=== PATIENT | female | born 1980 | race Caucasian/White ===

== ENCOUNTER → 2019-10-05 | Outpatient (CLI) | payer BC | END | disposition home or self-care (01) | LOC: LABWHC1 09:24 | PROVIDERS: ATTEND Nurse Practitioner Family | DX: U07.1 COVID-19 (principal) | CPT/HCPCS: 87635 ==

== ENCOUNTER → 2020-05-04 | Outpatient (CLI) | payer BC ==
--- NOTE | 2020-05-05 09:57 | MM ---
Reason for exam: screening (asymptomatic). Last mammogram was performed 12 years and 4 months ago. History: Family history of breast cancer in aunt at age 46. Physical Findings: A clinical breast exam by your physician is recommended on an annual basis and results should be correlated with mammographic findings. MG 3D Screening Mammo W/Cad Bilateral CC and MLO view(s) were taken. No prior studies available for comparison. There are scattered fibroglandular densities. Focal asymmetry 4mm middle posterior depth upper aspect near vessel 5cm from nipple. ASSESSMENT: Incomplete: need additional imaging evaluation, BI-RAD 0 RECOMMENDATION: Special view mammogram and ultrasound of the right breast. [facility] will attempt to contact patient to return for supplemental views and ultrasound.
== END | disposition home or self-care (01) ==
LOC: RADMAMWWP 12:25
PROVIDERS: ATTEND Family Medicine
DX: Z12.31 Encounter for screening mammogram for malignant neoplasm of breast (principal)
CPT/HCPCS: 77063; 77067

== ENCOUNTER → 2020-05-11 | Outpatient (CLI) | payer BC ==
--- NOTE | 2020-05-11 09:54 | MM ---
Reason for exam: additional evaluation requested from abnormal screening. Last mammogram was performed less than 1 month ago. History: Family history of breast cancer in aunt at age 46. Physical Findings: Nurse did not find any significant physical abnormalities on exam. MG 3D Work Up W/Cad RT CC and LM view(s) were taken of the right breast. Prior study comparison: January 05, 2008, bilateral diagnostic digital mammog. There are scattered fibroglandular densities. Under compression, the area partially disperses. No visible on ML. This finding is changed when compared with previous exams. These results were verbally communicated with the patient and result sheet given to the patient on 05/11/20. ASSESSMENT: Probably benign, BI-RAD 3 RECOMMENDATION: Follow-up diagnostic mammogram of the right breast in 6 months. (3D)
== END | disposition home or self-care (01) ==
LOC: RADMAMWWP 08:09
PROVIDERS: ATTEND Family Medicine
DX: R92.8 Other abnormal and inconclusive findings on diagnostic imaging of breast (principal)
CPT/HCPCS: 77061; 77065

== ENCOUNTER → 2021-11-23 | Outpatient (CLI) | payer BC ==
--- NOTE | 2021-11-23 09:26 | NM ---
EXAMINATION TYPE: NM hepatobiliary w EF DATE OF EXAM: 11/23/2021 COMPARISON: NONE HISTORY: Cholecystitis TECHNIQUE: After the intravenous administration of 5.07 mCi Tc 99m Mebrofenin hepatobiliary scintigra phy is performed. Immediate images post injection. FINDINGS: There is satisfactory initial accumulation of tracer by the liver. The gallbladder is visualized wit hin 6 minutes. The small bowel activity is noted within 32 minutes. At one hour 8 ounces of oral en sure plus is given to mimic CCK and gallbladder ejection fraction is calculated at 68 %, in the javier l range. Therefore there is no scintigraphic evidence of cystic or common bile duct obstruction to s uggest acute cholecystitis or gallbladder dyskinesia. IMPRESSION: Exam is within normal limits.
== END | disposition home or self-care (01) ==
LOC: RADNMMAIN 06:58
PROVIDERS: ATTEND Family Medicine
DX: K81.9 Cholecystitis, unspecified (principal)
CPT/HCPCS: 78226; A9537

== ENCOUNTER 2024-06-23 05:19 | Emergency (ER) | payer BC ==
--- NOTE | 2024-06-23 06:23 | ED ---
General Adult HPI - General Source: patient Mode of arrival: ambulatory Limitations: no limitations <Elyse Fowler - Last Filed: 06/23/24 08:04> - General Source: family, RN notes reviewed, old records reviewed Mode of arrival: ambulatory Limitations: no limitations <Emil Myers - Last Filed: 06/23/24 14:03> - General Chief complaint: Urogenital Stated complaint: ABD Pain Time Seen by Provider: 06/23/24 06:00 - History of Present Illness Initial comments: Patient is a 44-year-old female no significant medical history presenting today for right flank and right upper quadrant abdominal pain for 3 weeks. Worse over the last 2 nights. She states that she has noticed bilateral flank pain right worse on the right than the left intermittently over the last 3 weeks. This always occurs at night around 3 AM. Over the last 2 nights has occurred more intensely and consistently. She has not taken any home medications for the pain states she does not like to take medications. She has some associated mild nausea but denies emesis. She denies chest pain, shortness of breath or cough. She denies constipation, melena or hematochezia. Had diarrhea a couple of weeks ago after returning from a trip to [place] but this has since resolved. Denies dysuria, hematuria or urinary frequency. No prior abdominal surgeries. Denies fevers or chills. (Elyse Fowler) - Related Data Home Medications Medication Instructions Recorded Confirmed Methylphenidate HCl [Concerta] 36 mg PO DAILY 06/23/24 06/23/24 Allergies Allergy/AdvReac Type Severity Reaction Status Date / Time Penicillins AdvReac Nausea & Verified 06/23/24 09:46 Vomiting Review of Systems ROS Other: All systems not noted in ROS Statement are negative. <Elyse Fowler - Last Filed: 06/23/24 08:04> ROS Other: All systems not noted in ROS Statement are negative. <Emil yMers - Last Filed: 06/23/24 14:03> ROS Statement: Those systems with pertinent positive or pertinent negative responses have been documented in the HPI. Past Medical History Past Medical History: No Reported History History of Any Multi-Drug Resistant Organisms: None Reported Past Surgical History: Adenoidectomy, Tonsillectomy Past Psychological History: ADD/ADHD, Anxiety, Depression Smoking Status: Never smoker Past Alcohol Use History: Occasional Past Drug Use History: None Reported <Elyse Fowler - Last Filed: 06/23/24 08:04> General Exam Limitations: no limitations <Elyse Fowler - Last Filed: 06/23/24 08:04> - General Exam Comments Initial Comments: Positive right CVA tenderness, positive West sign PE: CONSTITUTIONAL: [no apparent distress, well appearing] SKIN: [warm, dry, no jaundice, hives or petechiae] EYES:[ pupils are equally round, extraocular movements intact without nystagmus, clear conjunctiva, non-icteric sclera] HENT: [normocephalic, atraumatic, moist mucus membranes, oropharynx clear without exudates] NECK: , [Full range of motion, normal appearance] PULMONARY: [clear to auscultation without wheezes, rhonchi, or rales, normal excursion, no accessory muscle use and no stridor] CARDIOVASCULAR:[ regular rate, rhythm, normal S1 and S2. No appreciated murmurs, rubs or gallops. Strong radial pulses with intact distal perfusion. No lower extremity edema] GASTROINTESTINAL: [soft, active bowel sounds throughout, non-tender, non- distended, no palpable masses, no rebound or guarding. No hepatosplenomegaly] GENITOURINARY: MUSCULOSKELETAL: [Extremities have no gross deformity, no edema, redness, or swelling. No calf swelling ] NEUROLOGIC: [_a/o x 3, GCS 15, normal mentation and speech. Moves all extremities x 4 without motor or sensory deficit] PSYCHIATRIC:[ _normal mood and affect, thought process is clear and linear] (Elyse) Course Vital Signs 06/23/24 06/23/24 06/23/24 05:20 10:35 11:24 Temperature 97.9 F Pulse Rate 90 89 91 Respiratory 18 16 14 Rate Blood Pressure 128/81 123/80 105/74 O2 Sat by Pulse 99 99 97 Oximetry Medical Decision Making - Lab Data Result diagrams: 06/23/24 06:44 06/23/24 06:44 <Elyse Fowler - Last Filed: 06/23/24 08:04> - Lab Data Result diagrams: 06/23/24 06:44 06/23/24 06:44 - Radiology Data Radiology results: report reviewed (Ultrasound negative for acute disease CT abdomen pelvis positive mesenteric adenitis), image reviewed <GenetjeromeEmil Lizette - Last Filed: 06/23/24 14:03> - Medical Decision Making Was pt. sent in by a medical professional or institution (MARYELLEN Anderson, FABRICATING MACHINE OPERATOR, urgent care, hospital, or senior living...) When possible be specific @ -[No] Did you speak to anyone other than the patient for history (EMS, parent, family, police, friend...)? What history was obtained from this source @ -[No] Did you review nursing and triage notes (agree or disagree)? Why? @ -[I reviewed nursing and triage notes] Were old charts reviewed (outside hosp., previous admission, EMS record, old EKG, old radiological studies, urgent care reports/EKG's, senior living records)? Report findings @ -[Medical records reviewed] Differential Diagnosis (chest pain, altered mental status, abdominal pain women, abdominal pain men, vaginal bleeding, weakness, fever, dyspnea, syncope, hea dache, dizziness, GI bleed, back pain, seizure, CVA, palpatations, mental health, musculoskeletal)? @ -[not applicable] EKG interpreted by me (3pts min.). @ -[As above] X-rays interpreted by me (1pt min.). @ -[None done] CT interpreted by me (1pt min.). @ -[None done] U/S interpreted by me (1pt. min.). @ -[None done] What testing was considered but not performed or refused? (CT, X-rays, U/S, labs )? Why? @ -[None] What meds were considered but not given or refused? Why? @ -[None] Did you discuss the management of the patient with other professionals (professionals i.e. MARYELLEN Anderson, FABRICATING MACHINE OPERATOR, lab, RT, psych nurse, social service coordinator, turbo generator oiler, teacher, special police officer, case reviewer)? Give summary @ -[No] Was smoking cessation discussed for >3mins.? @ -[No] Was critical care preformed (if so, how long)? @ -[No] Were there social determinants of health that impacted care today? How? (Homelessness, low income, unemployed, alcoholism, drug addiction, transportation, low edu. Level, literacy, decrease access to med. care, usp, rehab)? @ -[No] Was there de-escalation of care discussed even if they declined (Discuss DNR or withdrawal of care, Hospice)? @ -[No] What co-morbidities impacted this encounter? (DM, HTN, Smoking, COPD, CAD, Cancer, CVA, ARF, Chemo, Hep., AIDS, mental health diagnosis, sleep apnea, morbid obesity)? @ -[None] Was patient admitted / discharged? Hospital course, mention meds given and route, prescriptions, significant lab abnormalities, going to OR and other pertinent info. @ -[hospital course] this is a 44-year-old female no significant medical history presenting today for right-sided flank pain intermittently x 3 weeks, worse over the last 2 evenings. On my assessment patient resting comfortably, exam significant for right CVA tenderness and a positive West sign. Differential diagnosis as above however top considerations include choledocholithiasis/cholecystitis versus ureterolithiasis, will obtain ultrasound of the kidneys, gallbladder basic labs and urinalysis. Patient politely declines any additional medications pain or nausea control at this time. Preferring not to have an IV. Patient signed out to oncoming physician Dr. Myers pending imaging. Undiagnosed new problem with uncertain prognosis? @ -[No] Drug Therapy requiring intensive monitoring for toxicity (Heparin, Nitro, Insulin, Cardizem)? @ -[No] Were any procedures done? @ -[No] Diagnosis/symptom? @ -[default] Acute, or Chronic, or Acute on Chronic? @ -[default] Uncomplicated (without systemic symptoms) or Complicated (systemic symptoms)? @ -[default] Side effects of treatment? @ -[No] Exacerbation, Progression, or Severe Exacerbation? @ -[No] Poses a threat to life or bodily function? How? (Chest pain, USA, GA, pneumonia, PE, COPD, DKA, ARF, appy, cholecystitis, CVA, Diverticulitis, Homicidal, Suicidal, threat to staff... and all critical care pts) @ -[No] (Elyse Fowler) 44 female to the ER for evaluation of abdominal pain no acute findings here in the emergency room patient feels well and can be discharged home (Emil Myers) - Lab Data Lab Results 06/23/24 06/23/24 06/23/24 Range/Units 05:47 06:44 06:44 WBC 6.3 (3.8-10.6) k/uL RBC 4.15 (3.80-5.40) m/uL Hgb 12.2 (11.4-16.0) gm/dL Hct 36.6 (34.0-46.0) % MCV 88.2 (80.0-100.0) fL MCH 29.5 (25.0-35.0) pg MCHC 33.4 (31.0-37.0) g/dL RDW 12.6 (11.5-15.5) % Plt Count 281 (150-450) k/uL MPV 7.5 Neutrophils % 69 % Lymphocytes % 23 % Monocytes % 5 % Eosinophils % 2 % Basophils % 1 % Neutrophils # 4.3 (1.3-7.7) k/uL Lymphocytes # 1.5 (1.0-4.8) k/uL Monocytes # 0.3 (0-1.0) k/uL Eosinophils # 0.1 (0-0.7) k/uL Basophils # 0.0 (0-0.2) k/uL Sodium 140 (137-145) mmol/L Potassium 4.3 (3.5-5.1) mmol/L Chloride 107 (98-107) mmol/L Carbon Dioxide 28 (22-30) mmol/L Anion Gap 5 mmol/L BUN 16 (7-17) mg/dL Creatinine 0.67 (0.52-1.04) mg/dL Est GFR (CKD-EPI)AfAm >90 (>60 ml/min/1.73 sqM) Est GFR (CKD-EPI)NonAf >90 (>60 ml/min/1.73 sqM) Glucose 91 (74-99) mg/dL Calcium 9.3 (8.4-10.2) mg/dL Total Bilirubin 0.4 (0.2-1.3) mg/dL AST 21 (14-36) U/L ALT 20 (4-34) U/L Alkaline Phosphatase 49 (38-126) U/L Total Protein 6.3 (6.3-8.2) g/dL Albumin 3.8 (3.5-5.0) g/dL Amylase 72 (30-110) U/L Lipase 141 (23-300) U/L Urine Color Colorless Urine Appearance Clear (Clear) Urine pH 6.0 (5.0-8.0) Ur Specific [place] 1.016 (1.001-1.035) Urine Protein Negative (Negative) Urine Glucose (UA) Negative (Negative) Urine Ketones Negative (Negative) Urine Blood Negative (Negative) Urine Nitrite Negative (Negative) Urine Bilirubin Negative (Negative) Urine Urobilinogen <2.0 (<2.0) mg/dL Ur Leukocyte Esterase Negative (Negative) Disposition <Elyse Fowler - Last Filed: 06/23/24 08:04> Is patient prescribed a controlled substance at d/c from ED?: No Time of Disposition: 09:00 <Emil Myers - Last Filed: 06/23/24 14:03> Clinical Impression: Abdominal pain, Mesenteric adenitis Disposition: HOME SELF-CARE Condition: Good Instructions (If sedation given, give patient instructions): Abdominal Pain (ED), Mesenteric Adenitis (ED) Referrals: Melvin Perera DO [Primary Care Provider] - 1-2 days
[2024-06-23 06:32] LABS: Appearance,Urine Clear (Clear); Bilirubin,Urine Negative (Negative); Blood,Urine Negative (Negative); Color,Urine Colorless; Glucose,Urine (UA) Negative (Negative); Ketones,Urine Negative (Negative); Leukocyte Esterase,Urine Negative (Negative); Nitrite,Urine Negative (Negative); Protein,Urine Negative (Negative); Specific Gravity,Urine 1.016 (1.001-1.035); Urobilinogen,Urine <2.0 mg/dL (<2.0)
[2024-06-23 06:51] LABS: Basophils % (A) 1 %; Eosinophils # (A) 0.1 k/uL (0-0.7); Eosinophils % (A) 2 %; HCT 36.6 % (34.0-46.0); HGB 12.2 gm/dL (11.4-16.0); Lymphocytes # (A) 1.5 k/uL (1.0-4.8); Lymphocytes % (A) 23 %; MCH 29.5 pg (25.0-35.0); MCHC 33.4 g/dL (31.0-37.0); MCV 88.2 fL (80.0-100.0); Mean Platelet Volume 7.5; Monocytes # (A) 0.3 k/uL (0-1.0); Monocytes % (A) 5 %; Neutrophils # (A) 4.3 k/uL (1.3-7.7); Neutrophils % (A) 69 %; Platelet Count 281 k/uL (150-450); RBC 4.15 m/uL (3.80-5.40); RDW 12.6 % (11.5-15.5); WBC 6.3 k/uL (3.8-10.6)
[2024-06-23 07:11] LABS: ALT 20 U/L (4-34); AST 21 U/L (14-36); African American GFR (CKD) >90 (>60 ml/min/1.73 sqM); Albumin 3.8 g/dL (3.5-5.0); Alkaline Phosphatase 49 U/L (38-126); Amylase 72 U/L (30-110); Anion Gap 5 mmol/L; Blood Urea Nitrogen 16 mg/dL (7-17); Calcium 9.3 mg/dL (8.4-10.2); Carbon Dioxide 28 mmol/L (22-30); Chloride 107 mmol/L (98-107); Glucose 91 mg/dL (74-99); Lipase 141 U/L (23-300); Non-African American GFR(CKD) >90 (>60 ml/min/1.73 sqM); Potassium 4.3 mmol/L (3.5-5.1); Sodium 140 mmol/L (137-145); Total Bilirubin 0.4 mg/dL (0.2-1.3); Total Protein 6.3 g/dL (6.3-8.2)
--- NOTE | 2024-06-23 08:02 | US ---
EXAMINATION TYPE: US abd limited kidneys/bladder DATE OF EXAM: 06/23/2024 COMPARISON: NONE CLINICAL INDICATION: Female, 44 years old with history of RUQ/ Right flank pain, +CVA TTP; RUQ pain x a couple weeks. TECHNIQUE: Grayscale and color Doppler imaging of the right upper quadrant including the kidneys and urinary bladder. FINDINGS: EXAM MEASUREMENTS: Liver Length: 14.2 cm Gallbladder Wall: 0.26 cm CBD: 0.37 cm Right Kidney: 9.6 x 5.3 x 4.6 cm Left Kidney: 10.1 x 5.1 x 4.4 cm Pancreas: Not well seen. Liver: Appears coarse in echotexture. Gallbladder: Appears anechoic CBD: Appears wnl Right Kidney: No hydronephrosis or masses seen Left Kidney: Anechoic area seen upper pole: 2.6 x 2.7 x 2.2 cm. Bladder: Appears wnl Bilateral Jets Seen Yes PATIENT APPOINTMENT COORDINATOR NOTES: Exam is limited due to gas. IMPRESSION: 1. No evidence for acute process. 2. Simple appearing left renal cyst. [facility], , 06/23/2024 8:00 AM
--- NOTE | 2024-06-23 10:28 | CT ---
EXAMINATION TYPE: CT abdomen pelvis wo con DATE OF EXAM: 06/23/2024 HISTORY: bilateral flank pain CT DLP: 407.7 mGycm. Automated Exposure Control for Dose Reduction was Utilized. TECHNIQUE: CT scan of the abdomen and pelvis is performed without oral or IV contrast. COMPARISON: NONE FINDINGS: Within the limitations of a non-contrast study, the following observations are made. LUNG BASES: No significant abnormality is appreciated. LIVER/GB: No significant abnormality is appreciated. PANCREAS: No significant abnormality is seen. SPLEEN: No significant abnormality is seen. ADRENALS: No significant abnormality is seen. KIDNEYS: There is 1.9 cm simple appearing thin-walled cyst laterally at the left kidney on image 23. There is punctate 1 to 2 mm nonobstructing calculus right kidney on image 57. Possible punctate 1 mm nonobstructing calculus left kidney axial image 35. There is no hydronephrosis or obstructing urinary calculi however seen. BOWEL: Low-lying cecum into the right pelvis. Appendix appears within normal limits. No abnormal smal l or large bowel dilatation. Descending and Sigmoid colonic diverticulosis without CT evidence for ac betty diverticulitis. GENITAL ORGANS: No gross abnormality seen. LYMPH NODES: There are prominent but subcentimeter lymph nodes throughout the abdominal mesentery. OSSEOUS STRUCTURES: No significant abnormality is seen. OTHER: Small fat-containing umbilical hernia. IMPRESSION: Tiny nonobstructing bilateral renal calculi. No hydronephrosis or obstructing urinary luis culi seen bilaterally. Possible mesenteric adenitis otherwise no acute findings are seen. [facility], , 06/23/2024 10:26 AM
[2024-06-23 11:26] VITALS: BP 105/74; PULSE 91; RESP 14; TEMP 97.9
== END 2024-06-23 11:44 | disposition home or self-care (01) ==
LOC: EC 05:19
DX: I88.0 Nonspecific mesenteric lymphadenitis (principal); Z88.0 Allergy status to penicillin
CPT/HCPCS: 36415; 74176; 76705; 76770; 80053; 81003; 82150; 83690; 85025; 99285